=== PATIENT | female | born 1980 | race Caucasian/White ===

== ENCOUNTER 2019-04-18 13:24 | Emergency (ER) | payer MEDICAID ==
[~2019-04-18] VITALS: Ht 170.2 cm; Wt 117.0 kg
[2019-04-18 13:30] VITALS: Ht 170.2 cm; Wt 117.0 kg
[2019-04-18 14:03] LABS: PLATELET COUNT 239 x10^3mcL (130-400); RED CELL DISTRIBUTION WIDTH 13.4 % (11.5-14.5)
[2019-04-18 14:33] LABS: CALCIUM 8.3 mg/dL (8.5-10.1); CARBON DIOXIDE 27.9 mmol/L (21-32); CHLORIDE SERUM 104 mmol/L (98-107); CREATININE SERUM 0.4 mg/dL (0.6-1.0); GFR1 > 60 mL/min; GLUCOSE SERUM 209 mg/dL (74-106); POTASSIUM SERUM 3.8 mmol/L (3.5-5.1); SODIUM SERUM 140 mmol/L (136-145)
[2019-04-18 14:37] LABS: ALBUMIN 3.6 g/dL (3.4-5.0); ALKALINE PHOSPHATASE 76 U/L (46-116); ALT/SGPT 25 U/L (14-59); AST/SGOT 11 U/L (15-37); BILIRUBIN TOTAL 0.5 mg/dL (0.20-1.00); TOTAL PROTEIN, SERUM 6.8 g/dL (6.4-8.2)
[2019-04-18 15:11] VITALS: BP 117/57
== END 2019-04-18 15:11 | disposition home or self-care (01) ==
LOC: ED 13:24
PROVIDERS: Emergency Medicine
DX: R07.89 Other chest pain (principal); R73.9 Hyperglycemia, unspecified
CPT/HCPCS: 85378; J1885; Q0092

== ENCOUNTER 2019-09-17 22:29 | Emergency (ER) | payer MEDICAID ==
[~2019-09-17] VITALS: Ht 170.2 cm; Wt 113.4 kg
[2019-09-17 22:33] VITALS: Ht 170.2 cm; Wt 113.4 kg
[2019-09-18 06:17] VITALS: BP 127/83
== END 2019-09-18 06:17 | disposition home or self-care (01) ==
LOC: ED 22:29
DX: R07.89 Other chest pain (principal); M79.662 Pain in left lower leg
CPT/HCPCS: 85378; Q0092